=== PATIENT | female | born 1945 ===

== ENCOUNTER 2018-11-26 11:16 | Day surgery (SDC) | payer MEDICARE, BC ==
[~2018-11-26] VITALS: Ht 149.9 cm; Wt 60.7 kg
[2018-11-26 12:00] VITALS: BP 132/82
[2018-11-26] MEDS ORDERED: FLUT1DIS4 INH (12:04)
[2018-11-26] MEDS ORDERED: OMEP40CA13 PO (12:04)
[2018-11-26] MEDS ORDERED: SERT25TA PO (12:04)
[2018-11-26] MEDS ORDERED: NAPR220T67 PO (12:04)
[2018-11-26] MEDS ORDERED: ATOR10TA87 PO (12:04)
[2018-11-26] MEDS ORDERED: iohexol 300 MG/1 ML 50ml polymer ONE (14:37)
[2018-11-26 15:07] VITALS: BP 136/69
== END 2018-11-26 15:15 | disposition home or self-care (01) ==
LOC: SSTAY O 11:16 → EDSTATUS 13:00 → SSTAY O 15:15
PROVIDERS: ATTEND Radiology Diagnostic Radiology
DX: Z43.6 Encounter for attention to other artificial openings of urinary tract (principal); E78.00 Pure hypercholesterolemia, unspecified; K21.9 Gastro-esophageal reflux disease without esophagitis; F32.9 Major depressive disorder, single episode, unspecified; Z91.040 Latex allergy status; Z91.09 Other allergy status, other than to drugs and biological substances; Z79.899 Other long term (current) drug therapy
CPT/HCPCS: 50431; Q9967; 74425